=== PATIENT | female | born 1950 | race American Indian/Alaskan Native ===

== ENCOUNTER 2019-02-11 07:31 | Outpatient (CLI) | payer MEDICARE ==
--- NOTE | 2019-02-11 09:17 | Mammography Report ---
DIGITAL SCREENING MAMMOGRAM WITH CAD, 02/11/2019 INDICATION: Routine screening mammography. TECHNIQUE: Digital bilateral 2D mammography was obtained in the craniocaudal and mediolateral obliq ue projections. This examination was interpreted with the benefit of Computer-Aided Detection analysi s. COMPARISON: None available. However, she indicated that she had a previous mammogram at [facility]. FINDINGS: Breast Density: The breasts are heterogeneously dense, which may obscure small masses. A left asymmetry on the MLO view requires comparison with the prior mammogram. There is no evidence o f dominant mass, suspicious calcifications or architectural distortion in the right breast. IMPRESSION:Comparison with the previous mammogram is recommended. We will attempt to obtain a prior m ammogram for comparison. If we do not obtain a prior mammogram within 30 days, a revised report will be issued recommending a recall for additional imaging. Please be advised that the patient should not schedule an appointment for return until adequate time (at least 2 weeks) has passed for us to obtai n the prior mammogram. Follow up recommendation: Obtain prior study for comparison Category 0: Incomplete. Needs additional imaging evaluation and/or prior mammograms for comparison. A "normal" or negative report should not discourage follow up or biopsy of a clinically significant f inding. A written summary of these findings will be mailed to the patient. The patient will be entered into a mammography reporting system which will generate a reminder letter for the patient's next appointmen t at the appropriate interval. The [employer] recommends yearly mammograms starting at age 40 and continuing as l clementina as a woman is in good health. Breast MRI is recommended for women with an approximate 20-25% or greater lifetime risk of breast cancer, including women with a strong family history of breast or ova julio c cancer or who have been treated for Hodgkin's disease. Signer Name: Chandler Mcdaniel MD Signed: 02/11/2019 9:12 AM Workstation Name: [id number]
== END 2019-02-11 07:32 | disposition home or self-care (01) ==
LOC: MAMMO 07:31
PROVIDERS: ATTEND Internal Medicine
DX: Z12.31 Encounter for screening mammogram for malignant neoplasm of breast (principal)
CPT/HCPCS: 77067

== ENCOUNTER 2019-04-09 08:12 | Outpatient (CLI) | payer MEDICARE ==
--- NOTE | 2019-04-09 09:47 | Ultrasound Report ---
LEFT DIGITAL DIAGNOSTIC MAMMOGRAM WITH CAD 04/09/2019 LEFT LIMITED BREAST ULTRASOUND INDICATION: Recalled for mammographic asymmetries. TECHNIQUE: Digital left mammographic imaging was performed. Magnification views were obtained. Limit ed ultrasound was performed. This examination was interpreted with the benefit of Computer-Aided Dete ction (CAD) analysis. COMPARISON: 02/11/2019 FINDINGS: Breast Density: The breasts are heterogeneously dense, which may obscure small masses. MAMMOGRAPHIC FINDINGS: Lateral medial, exaggerated CC and spot magnification MLO views were performed . Satisfactory effacement of asymmetries on the spot image. However, partially circumscribed densitie s persist on the other views. ULTRASOUND FINDINGS: Targeted ultrasound evaluation was performed of the area of interest. Ultrasou nd of the upper outer quadrant of the left breast demonstrated for benign cysts and no solid mass or shadowing. The largest cyst or 2:00 6 cm from the nipple and measure 6 and 7 mm each. IMPRESSION: Benign cysts and no suspicious finding. Follow up recommendation: Routine yearly BI-RADS Category 2: Benign. A "normal" or negative report should not discourage follow up or biopsy of a clinically significant f inding. A written summary of these findings will be mailed to the patient. The patient will be entered into a mammography reporting system which will generate a reminder letter for the patient's next appointmen t at the appropriate interval. According to the [employer], yearly mammograms are recommended starting at age 40 and continuing as long as a woman is in good health. Breast MRI is recommended for women with an vadim roximately 20-25% or greater lifetime risk of breast cancer, including women with a strong family his tory of breast or ovarian cancer and women who have been treated for Hodgkin's disease. Signer Name: Chandler Mcdaniel MD Signed: 04/09/2019 9:43 AM Workstation Name: [id number]
--- NOTE | 2019-04-09 15:15 | Mammography Report ---
LEFT DIGITAL DIAGNOSTIC MAMMOGRAM WITH CAD LEFT LIMITED BREAST ULTRASOUND INDICATION: Recalled for mammographic asymmetries. TECHNIQUE: Digital left mammographic imaging was performed. Magnification views were obtained. Limite d ultrasound was performed. This examination was interpreted with the benefit of Computer-Aided Detec tion (CAD) analysis. COMPARISON: 02/11/2019 FINDINGS: Breast Density: The breasts are heterogeneously dense, which may obscure small masses. MAMMOGRAPHIC FINDINGS: Lateral medial, exaggerated CC and spot magnification MLO views were performed . Satisfactory effacement of asymmetries on the spot image. However, partially circumscribed densitie s persist on the other views. ULTRASOUND FINDINGS: Targeted ultrasound evaluation was performed of the area of interest. Ultrasound of the upper outer quadrant of the left breast demonstrated for benign cysts and no solid mass or sh adowing. The largest cyst are at 2:00 6 cm from the nipple and measure 6 and 7 mm each. IMPRESSION: Benign cysts and no suspicious finding. Follow up recommendation: Routine yearly BI-RADS Category 2: Benign. A "normal" or negative report should not discourage follow up or biopsy of a clinically significant f inding. A written summary of these findings will be mailed to the patient. The patient will be entered into a mammography reporting system which will generate a reminder letter for the patient's next appointmen t at the appropriate interval. According to the [employer], yearly mammograms are recommended starting at age 40 and continuing as long as a woman is in good health. Breast MRI is recommended for women with an appr oximately 20-25% or greater lifetime risk of breast cancer, including women with a strong family hist ory of breast or ovarian cancer and women who have been treated for Hodgkin's disease. Signer Name: Chandler Mcdaniel MD Signed: 04/09/2019 3:11 PM Workstation Name: [id number]
== END 2019-04-09 08:13 | disposition home or self-care (01) ==
LOC: MAMMO 08:12
PROVIDERS: ATTEND Internal Medicine
DX: N60.02 Solitary cyst of left breast (principal)

== ENCOUNTER 2020-05-12 08:22 | Outpatient (CLI) | payer MEDICARE ==
--- NOTE | 2020-05-12 09:33 | Mammography Report ---
DIGITAL SCREENING MAMMOGRAM WITH CAD, 05/12/2020 CLINICAL INFORMATION / INDICATION: Routine screening mammography. ROUTINE TECHNIQUE: Digital bilateral 2D mammography was obtained in the craniocaudal and mediolateral obliqu e projections. This examination was interpreted with the benefit of Computer-Aided Detection analysis . COMPARISON: 05/24/2017 and 02/11/2019. FINDINGS: Breast Density: There are scattered areas of fibroglandular density. No dominant mass, suspicious calcifications, or architectural distortion in either breast. Benign nodularity bilaterally is again identified. No new abnormality is seen. IMPRESSION: No mammographic evidence of malignancy. Follow up recommendation: Routine yearly BI-RADS Category 2: Benign. A "normal" or negative report should not discourage follow up or biopsy of a clinically significant f inding. A written summary of these findings will be mailed to the patient. The patient will be entered into a mammography reporting system which will generate a reminder letter for the patient's next appointmen t at the appropriate interval. The [employer] recommends yearly mammograms starting at age 40 and continuing as l clementina as a woman is in good health. Breast MRI is recommended for women with an approximate 20-25% or greater lifetime risk of breast cancer, including women with a strong family history of breast or ova julio c cancer or who have been treated for Hodgkin's disease. Signer Name: Vu Cohn MD Signed: 05/12/2020 9:29 AM Workstation Name: [id number]
== END 2020-05-12 08:23 | disposition home or self-care (01) ==
LOC: MAMMO 08:22
PROVIDERS: ATTEND Internal Medicine
DX: Z12.31 Encounter for screening mammogram for malignant neoplasm of breast (principal); N64.89 Other specified disorders of breast
CPT/HCPCS: 77067

== ENCOUNTER 2021-05-13 08:10 | Outpatient (CLI) | payer MEDICARE ==
--- NOTE | 2021-05-13 14:26 | Mammography Report ---
DIGITAL SCREENING MAMMOGRAM WITH CAD, 05/13/2021 CLINICAL INFORMATION / INDICATION: Routine screening TECHNIQUE: Digital bilateral 2D mammography was obtained in the craniocaudal and mediolateral obliqu e projections. This examination was interpreted with the benefit of Computer-Aided Detection analysis . COMPARISON: 05/12/2020 FINDINGS: Breast Density: There are scattered areas of fibroglandular density. No dominant mass, suspicious calcifications, or architectural distortion in either breast. IMPRESSION: No mammographic evidence of malignancy. Follow up recommendation: Routine yearly BI-RADS Category 1: NEGATIVE A "normal" or negative report should not discourage follow up or biopsy of a clinically significant f inding. A written summary of these findings will be mailed to the patient. The patient will be entered into a mammography reporting system which will generate a reminder letter for the patient's next appointmen t at the appropriate interval. The [employer] recommends yearly mammograms starting at age 40 and continuing as l clementina as a woman is in good health. Breast MRI is recommended for women with an approximate 20-25% or greater lifetime risk of breast cancer, including women with a strong family history of breast or ova julio c cancer or who have been treated for Hodgkin's disease. Signer Name: Dusty Campoverde MD Signed: 05/13/2021 2:21 PM Workstation Name: [id number]
== END 2021-05-13 08:11 | disposition home or self-care (01) ==
LOC: MAMMO 08:10
PROVIDERS: ATTEND Internal Medicine
DX: Z12.31 Encounter for screening mammogram for malignant neoplasm of breast (principal)
CPT/HCPCS: 77067